=== PATIENT | male | born 1985 | race Caucasian/White ===

== ENCOUNTER 2019-10-30 00:28 | Emergency (ER) | payer MEDICAID ==
--- NOTE | 2019-10-30 01:09 | EDM.PDOC ---
ED HPI GENERAL MEDICAL PROBLEM - General Chief Complaint: ENT Problem Stated Complaint: TOOTHACHE Time Seen by Provider: 10/30/19 00:57 Source of Information: Reports: Patient History Limitations: Reports: No Limitations - History of Present Illness INITIAL COMMENTS - FREE TEXT/NARRATIVE: Patient presents describing generalized teeth and gum discomfort but especially the left side of the mouth. He acknowledges a long history of dental problems partly related to previous recreational drug use. Things have gradually gotten worse and the last few days has been miserable for him. He has tried a number of local measures without success. He went to the clinic in [place], [place] and was prescribed a brief course of antibiotic which improved but did not eliminate his pain. He is trying to find a dentist who can evaluate him. Onset: Gradual Duration: Day(s): (5), Waxing/Waning Location: Reports: Other Quality: Reports: Ache, Throbbing Severity: Moderate Improves with: Reports: None Worsens with: Reports: Eating Associated Symptoms: Reports: No Other Symptoms Left Oral/Mouth Pain Score (Numeric/FACES): 9 - Related Data Allergies Allergy/AdvReac Type Severity Reaction Status Date / Time No Known Allergies Allergy Verified 10/30/19 01:11 Home Meds: Home Meds DULoxetine [Cymbalta] 60 mg PO BID 10/30/19 [History] ED ROS ENT - Review of Systems Review Of Systems: Comprehensive ROS is negative, except as noted in HPI. ED EXAM, ENT - Physical Exam Exam: See Below Exam Limited By: No Limitations General Appearance: Mild Distress Mouth/Throat: Dental Pain, Dental Tenderness, Other (There are numerous caries previously filled and a couple small areas which appear to be new cavities.). No: Dental Abcess, Dental Trauma, Drooling, Gum Swelling, Oral Ulcers, Throat Swelling Head: Atraumatic Course - Vital Signs Last Recorded V/S: Last Vital Signs Temp 36.3 C 10/30/19 01:15 Pulse 75 10/30/19 01:15 Resp 16 10/30/19 01:15 BP 145/107 H 10/30/19 01:15 Pulse Ox 95 10/30/19 01:15 - Orders/Labs/Meds Meds: Medications Discontinued Medications Generic Name Dose Route Start Last Admin Trade Name Freq PRN Reason Stop Dose Admin Clindamycin HCl 300 mg 10/30/19 01:12 10/30/19 01:27 Cleocin PO 10/30/19 01:13 300 mg ONETIME ONE Administration Prednisone 20 mg 10/30/19 01:12 10/30/19 01:27 Prednisone PO 10/30/19 01:13 20 mg ONETIME ONE Administration Tramadol HCl 50 mg 10/30/19 01:13 10/30/19 01:27 Ultram PO 10/30/19 01:14 50 mg ONETIME ONE Administration - Re-Assessments/Exams Free Text/Narrative Re-Assessment/Exam: 10/30/19 06:21 Ultimately, he knows that he needs to get into see a dentist. I do not see any obvious abscess tonight. He does not remember what antibiotic he was placed on. He was given single doses in the department of clindamycin 300 mg, prednisone 20 mg, tramadol 50 mg. He was sent with prescriptions for another 5 days of prednisone 20 mg, 7 days of clindamycin 300 mg 3 times daily and 12 tablets of tramadol 50 mg, all to be used as directed. Salt water mouth rinses are still appropriate. Contact area dentist on Thursday for recheck appointment scheduling. Return to ER if feeling worse. Departure - Departure Time of Disposition: :13 Disposition: Home, Self-Care 01 Clinical Impression: Dental caries - Discharge Information Instructions: Dental Extraction, [id number] Referrals: PCP,None [Primary Care Provider] - Forms: ED Department Discharge Additional Instructions: Start new antibiotic, prednisone, pain medication tonight. Contact the [facility] dental clinic on Thursday to see if you are able to be evaluated there. Continue salt water mouth rinses. Sepsis Event Note (ED) - Focused Exam Vital Signs: Vital Signs Temp Pulse Resp BP Pulse Ox 10/30/19 01:15 36.3 C 75 16 145/107 H 95 10/30/19 00:52 36.3 C 75 16 145/107 H 95
[2019-10-30] MEDS ORDERED: Clindamycin HCl 150 MG Cap PO ONE (01:12)
[2019-10-30] MEDS ORDERED: predniSONE 20 MG Tab PO ONE (01:12)
[2019-10-30] MEDS ORDERED: traMADol 50 MG Tab PO ONE (01:13)
== END 2019-10-30 01:32 | disposition home or self-care (01) ==
LOC: JP.ED 00:28
DX: K02.9 Dental caries, unspecified (principal); Z79.899 Other long term (current) drug therapy
CPT/HCPCS: 99282; A9270; J7512; 99283